=== PATIENT | female | born 1990 | race African-American/Black ===

== ENCOUNTER 2020-07-04 14:53 | Emergency (ER) | payer OTHER ==
--- OUTSIDE RECORDS SUMMARY | 2020-07-04 14:55 | XMS REPORT | Continuity of Care Document ---
:1990 Author Organization [facility] t Address [address] [place] [address] Care Team Providers Name Role Phone Aurea Garcia MD Attending Clinician Pob, Lab Main Attending Clinician Unavailable Doctor Unassigned, Name Attending Clinician Unavailable Problems This patient has no known problems. Allergies, Adverse Reactions, Alerts This patient has no known allergies or adverse reactions. Medications This patient has no known medications. Procedures This patient has no known procedures. Encounters Start End Encounter Admission Attending Care Care Encounter Source Date/Time Date/Time Type Type Clinicians Facility Department ID 2019-08-16 2019-08-16 [facility] [id number] 16:30:00 23:59:00 Encounter Da Villar Fabian [id number] [place] [id number] [place] [id number] [id number] 2019-08-16 2019-08-16 Backend Python Developer Eliazar Andrew [facility] [id number] 16:33:30 16:48:30 Visit Lab Main [place] [id number] [place] [id number] [place] [phone] [address] 2019-08-16 2019-08-16 Orders Doctor MG [id number] 00:00:00 00:00:00 Only Unassigned, RANDY [id number] [place] [id number] 2019-08-15 2019-08-15 Office Jose KALLIE [id number] 14:56:09 15:32:10 Visit [facility] [id number] Surgical [id number] [place] [phone] [address] Results This patient has no known results.
--- NOTE | 2020-07-04 15:37 | EDPHYS ---
Physician Documentation [facility] Name: Lindsey Bañuelos Age: 30 yrs Sex: Female : 1990 Arrival Date: 07/04/2020 Time: 14:56 Bed 16 Private MD: ED Physician Toan Johns HPI: 07/04 15:33 This 30 yrs old Black Female presents to ER via Ambulatory with complaints of Leg Pain. kb 15:33 The patient presents with pain, that is acute. The complaints affect the right gluteal kb fold, right hamstring, posterior aspect of right knee and right calf. Context: The problem was sustained at home, resulted from an unknown cause, the patient can fully bear weight, the patient is able to ambulate, Problem is a result from a previous injury: No. Onset: The symptoms/episode began/occurred 1 week(s) ago. Modifying factors: The symptoms are alleviated by nothing. the symptoms are aggravated by nothing. Associated signs and symptoms: The patient has no apparent associated signs or symptoms. Treatment prior to arrival includes: no previous treatment. Severity of symptoms: At their worst the symptoms were moderate, in the emergency department the symptoms are unchanged. The patient has experienced similar episodes in the past, multiple times. The patient has not recently seen a physician. Pt reports "nerve pain" that starts at right buttock and radiates down back of leg. States she has had this several times before but this time OTC meds haven't been helping. . PROCESS TECH: 15:12 LMP 06/03/2020 em Historical: - Allergies: 15:12 No Known Allergies; em - PMHx: 15:12 None; em - PSHx: 15:12 None; em - Immunization history:: Adult Immunizations not up to date. - Social history:: Smoking status: Patient reports the use of cigarette tobacco products, denies chronic smoking, but will smoke occasionally. ROS: 15:30 Constitutional: Negative for fever, chills, and weight loss, Abdomen/GI: Negative for kb abdominal pain, nausea, vomiting, diarrhea, and constipation, Back: Negative for injury and pain, : Negative for injury, bleeding, discharge, and swelling, Skin: Negative for injury, rash, and discoloration, Neuro: Negative for headache, weakness, numbness, tingling, and seizure. 15:30 MS/extremity: Positive for pain, of the right gluteus julieth and right leg. Exam: 15:32 Constitutional: This is a well developed, well nourished patient who is awake, alert, kb and in no acute distress. Head/Face: Normocephalic, atraumatic. Respiratory: Respirations even and unlabored. No increased work of breathing, no retractions or nasal flaring. Back: No spinal tenderness. No costovertebral tenderness. Full range of motion. Skin: Warm, dry with normal turgor. Normal color. MS/ Extremity: Pulses equal, no cyanosis. Neurovascular intact. Full, normal range of motion. Neuro: Awake and alert, GCS 15, oriented to person, place, time, and situation. Moves all extremities. Normal gait. Psych: Awake, alert, with orientation to person, place and time. Behavior, mood, and affect are within normal limits. Vital Signs: 15:10 BP 115 / 87; Pulse 89; Resp 18; Temp 97.6; Pulse Ox 100% on R/A; Weight 74.84 kg; em Height 5 ft. 7 in. (170.18 cm); Pain 9/10; 15:33 BP 112 / 84; Pulse 70; Resp 14; Pulse Ox 100% on R/A; vg1 15:10 Body Mass Index 25.84 (74.84 kg, 170.18 cm) em MDM: 15:14 Patient medically screened. kb 15:32 Data reviewed: vital signs, nurses notes. Data interpreted: Pulse oximetry: on room air kb is 100 %. Interpretation: normal. Counseling: I had a detailed discussion with the patient and/or guardian regarding: the historical points, exam findings, and any diagnostic results supporting the discharge/admit diagnosis, the need for outpatient follow up, a family practitioner, to return to the emergency department if symptoms worsen or persist or if there are any questions or concerns that arise at home. Administered Medications: 16:00 Drug: TORadol (ketorolac) 30 mg Route: IM; Site: left deltoid; vg1 16:15 Follow up: Response: Medication administered at discharge. vg1 16:00 Drug: Decadron (dexamethasone) 10 mg Route: IM; Site: right deltoid; vg1 16:15 Follow up: Response: Medication administered at discharge. vg1 Disposition: 07/05 09:21 Co-signature as Attending Physician, Toan Johns MD I agree with the assessment and bibi plan of care. Disposition: 07/04/20 15:36 Discharged to Home. Impression: Sciatica, right side. - Condition is Stable. - Discharge Instructions: Sciatica, [id number]. - Prescriptions for Prednisone 20 mg Oral Tablet - take 1 tablet by ORAL route once daily for 5 days; 5 tablet. Cyclobenzaprine 10 mg Oral Tablet - take 1 tablet by ORAL route every 8 hours As needed; 21 tablet. - Medication Reconciliation Form, Thank You Letter, Antibiotic Education, Prescription Opioid Use form. - Follow up: Emergency Department; When: As needed; Reason: Worsening of condition. Follow up: Private Physician; When: 2 - 3 days; Reason: Recheck today's complaints, Continuance of care, Re-evaluation by your physician. Signatures: Pepper Lua, ORACLE DATABASE ANALYST-C ORACLE DATABASE ANALYST-Toan Reyes MD MD cha Munoz, Edgar, RN RN Bea Braxton RN RN vg1 Corrections: (The following items were deleted from the chart) 07/04 16:16 15:36 07/04/2020 15:36 Discharged to Home. Impression: Sciatica, right side. Condition vg1 is Stable. Forms are Medication Reconciliation Form, Thank You Letter, Antibiotic Education, Prescription Opioid Use. Follow up: Emergency Department; When: As needed; Reason: Worsening of condition. Follow up: Private Physician; When: 2 - 3 days; Reason: Recheck today's complaints, Continuance of care, Re-evaluation by your physician. kb
--- NOTE | 2020-07-04 15:37 | ER ---
Nurse's Notes [facility] Name: Lindsey Bañuelos Age: 30 yrs Sex: Female : 1990 Arrival Date: 07/04/2020 Time: 14:56 Bed 16 Private MD: Diagnosis: Sciatica, right side Presentation: 07/04 15:10 Chief complaint: Patient states: low back pain that radiates into left leg that started em Thursday, tried a lidocaine patch that is helping but still painful, denies injury. Coronavirus screen: Client denies travel out of the [place] in the last 14 days. Ebola Screen: Patient negative for fever greater than or equal to 101.5 degrees Fahrenheit, and additional compatible Ebola Virus Disease symptoms Patient denies exposure to infectious person. Patient denies travel to an Ebola-affected area in the 21 days before illness onset. No symptoms or risks identified at this time. Initial Sepsis Screen: Does the patient meet any 2 criteria? No. Patient's initial sepsis screen is negative. Does the patient have a suspected source of infection? No. Patient's initial sepsis screen is negative. Risk Assessment: Do you want to hurt yourself or someone else? Patient reports no desire to harm self or others. Onset of symptoms was July 04, 2020. 15:10 Method Of Arrival: Ambulatory em 15:10 Acuity: MARI 4 em CLINICAL TRAINING SPECIALIST: 15:12 LMP 06/03/2020 em Historical: - Allergies: 15:12 No Known Allergies; em - PMHx: 15:12 None; em - PSHx: 15:12 None; em - Immunization history:: Adult Immunizations not up to date. - Social history:: Smoking status: Patient reports the use of cigarette tobacco products, denies chronic smoking, but will smoke occasionally. Screenin:33 Abuse screen: Denies threats or abuse. Nutritional screening: No deficits noted. vg1 Tuberculosis screening: No symptoms or risk factors identified. Fall Risk No fall in past 12 months (0 pts). No secondary diagnosis (0 pts). No IV (0 pts). Ambulatory Aid- None/Bed Rest/Nurse Assist (0 pts). Gait- Normal/Bed Rest/Wheelchair (0 pts) Mental Status- Oriented to own ability (0 pts). Total Hawley Fall Scale indicates No Risk (0-24 pts). Assessment: 15:20 General: Appears in no apparent distress. comfortable, Behavior is calm, cooperative. vg1 Pain: Complains of pain in left gluteus julieth and left leg Pain currently is 7 out of 10 on a pain scale. Pain began about a week ago Alleviated by rest, heat application, Aggravated by increased activity, repositioning, weight bearing. Neuro: Level of Consciousness is awake, alert, obeys commands, Oriented to person, place, time, situation. Cardiovascular: Patient's skin is warm and dry. Respiratory: Airway is patent Respiratory effort is even, unlabored. GI: No signs and/or symptoms were reported involving the gastrointestinal system. : No signs and/or symptoms were reported regarding the genitourinary system. EENT: No signs and/or symptoms were reported regarding the EENT system. Derm: Skin is intact, is healthy with good turgor. Musculoskeletal: Circulation, motion, and sensation intact. Vital Signs: 15:10 BP 115 / 87; Pulse 89; Resp 18; Temp 97.6; Pulse Ox 100% on R/A; Weight 74.84 kg; em Height 5 ft. 7 in. (170.18 cm); Pain 9/10; 15:33 BP 112 / 84; Pulse 70; Resp 14; Pulse Ox 100% on R/A; vg1 15:10 Body Mass Index 25.84 (74.84 kg, 170.18 cm) em ED Course: 14:56 Patient arrived in ED. mr 15:11 Triage completed. em 15:12 Arm band placed on. em 15:14 Pepper Lua FNP-C [facility]. kb 15:14 Toan Johns MD is Attending Physician. kb 15:19 Bea Smallwood, RN is Primary Nurse. vg1 15:34 Patient has correct armband on for positive identification. Bed in low position. Call vg1 light in reach. 16:16 No provider procedures requiring assistance completed. Patient did not have IV access vg1 during this emergency room visit. Administered Medications: 16:00 Drug: TORadol (ketorolac) 30 mg Route: IM; Site: left deltoid; vg1 16:15 Follow up: Response: Medication administered at discharge. vg1 16:00 Drug: Decadron (dexamethasone) 10 mg Route: IM; Site: right deltoid; vg1 16:15 Follow up: Response: Medication administered at discharge. vg1 Outcome: 15:36 Discharge ordered by . kai 16:16 Discharged to home ambulatory. vg1 16:16 Condition: stable 16:16 Discharge instructions given to patient, Instructed on discharge instructions, follow up and referral plans. medication usage, Demonstrated understanding of instructions, follow-up care, medications, Prescriptions given X 2. 16:16 Patient left the ED. vg1 Signatures: Pepper Lua, STEFANI CHRISTIANSON-Christelle Bardales Edgar, RN RN Bea Braxton, RN RN vg1
[2020-07-04] MEDS ORDERED: KETOROLAC 30 MG/ML INJ ONE (16:04)
[2020-07-04] MEDS ORDERED: dexAMETHasone 10 MG/ML VIAL ONE (16:04)
[2020-07-04 16:22] VITALS: TEMP 97.6; O2SAT 100
[2020-07-04 16:23] VITALS: BP 112/84
== END 2020-07-04 16:16 | disposition home or self-care (01) ==
LOC: ER 14:53
DX: M54.31 Sciatica, right side (principal); F17.210 Nicotine dependence, cigarettes, uncomplicated
CPT/HCPCS: 96372; 99283; J1100